=== PATIENT | female | born 1980 | race Caucasian/White ===

== ENCOUNTER 2020-03-13 20:09 | Inpatient (IN) | payer SELFPAY ==
[~2020-03-13] VITALS: Ht 165.1 cm; Wt 78.6 kg
[2020-03-13 19:45] VITALS: BP 124/79
[2020-03-13] MEDS ORDERED: EFFEXOR75 MG PO (20:17)
[2020-03-13] MEDS ORDERED: XANAX0.5 MG PO (20:18)
[2020-03-13 20:30] VITALS: BP 134/82
--- NOTE | 2020-03-13 20:34 | NUR ---
URINE SPEC TO LAB
[2020-03-13 21:30] VITALS: BP 106/84
--- NOTE | 2020-03-13 21:40 | NUR ---
PATIENT IN ER 5 WITH FLANK PAIN. SHE IS NOT SUICIDIAL AND HAS NOT BEEN IN MONTHS. SHE HAS A FRIEND WITH HER THAT IS REALLY ATTENTIVE. SHE REPORTS THAT SHE HAS BEEN TAKING HER MEDS PRESCRIBED AND ONLY WANTS HELP WITH HER FLANK PAIN. 1800 NUMBER GIVEN FOR FUTURE REFERENCE.
[2020-03-13 22:01] LABS: BILIRUBIN NEGATIVE (NEGATIVE); GLUCOSE NEGATIVE (NEGATIVE); KETONE NEGATIVE (NEGATIVE); NITRITE POSITIVE (NEGATIVE); UROBILINOGEN NORMAL (NORMAL)
[2020-03-13 22:07] LABS: BACTERIA MODERATE /hpf (NEGATIVE); EPITHELIAL CELLS 0-5 /hpf (0-5); RED CELLS - URINE 0-5 /hpf (0-5)
[2020-03-13 22:32] LABS: HCG URINE NEGATIVE (NEGATIVE)
[2020-03-13 22:36] LABS: BASOPHILS 0.2 % (0-2); CALCIUM 8.4 mg/dL (8.5-10.1); CARBON DIOXIDE 30.2 mmol/L (21.0-32.0); CREATININE - SERUM 0.9 mg/dL (0.6-1.3); EOSINOPHILS 1.2 % (0-7); HEMATOCRIT 40.2 % (36.0-48.0); HEMOGLOBIN 13.1 g/dL (12-16); IMMATURE GRANULOCYTES 0.3 % (0-5); LYMPHOCYTES 18.4 % (15-50); MCH 31.7 pg (26.0-34.0); MCHC 32.6 g/dL (31.0-37.0); MCV 97.3 fL (80.0-100.0); MEAN PLATELET VOLUME 10.8 fL (7.4-10.4); MONOCYTES 6.4 % (2-11); NEUTROPHILS 73.5 % (40-80); PLATELET COUNT 367 10x3/uL (130-400); POTASSIUM - SERUM 3.2 mmol/L (3.5-5.1); RBC 4.13 10x6/uL (4.00-5.40); RDW 12.9 % (11.5-14.5)
[2020-03-13 22:40] LABS: ALBUMIN 2.8 g/dL (3.4-5.0); BILIRUBIN - TOTAL 0.28 mg/dL (0.2-1.3); PROTEIN - SERUM 7.5 g/dL (6.4-8.2)
[2020-03-14 00:14] LABS: UDS - AMPHET POSITIVE QUAL (NEGATIVE); UDS - BARB NEGATIVE QUAL (NEGATIVE); UDS - BENZO NEGATIVE QUAL (NEGATIVE); UDS - COCAINE NEGATIVE QUAL (NEGATIVE); UDS - OPIATE NEGATIVE QUAL (NEGATIVE); UDS - PCP NEGATIVE QUAL (NEGATIVE); UDS - THC POSITIVE QUAL (NEGATIVE)
--- NOTE | 2020-03-14 02:35 | NUR ---
RECEIVED PT TO FLOOR FROM ER VIA WHEELCHAIR. PT AMBULATORY. RATES RIGHT FLANK PAIN 2/10. REVIEWED HOME MEDS AND HISTORY. PT DRINKS A SIX PACK OF COLA A DAY AND VERY LITTLE WATER. GAVE PT SANDWICH TRAY AND COLA. NO OTHER NEEDS. WILL REASSESS AND CONTINUE TO MONITOR.
[2020-03-14 04:49] VITALS: Ht 165.1 cm; Wt 78.6 kg
[2020-03-14 06:01] VITALS: BP 97/63
[2020-03-14 09:10] VITALS: BP 104/66
[2020-03-14 11:54] VITALS: BP 97/96
--- NOTE | 2020-03-14 12:19 | NUR ---
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 GIVEN PER EMAR. DENIES ANY OTHER NEEDS AT THIS TIME. WILL REASSES AND CONTINUE TO MONITOR.
[2020-03-14 16:22] VITALS: BP 102/68
[2020-03-14 20:00] VITALS: BP 108/65
[2020-03-15] VITALS: BP 93/56
--- NOTE | 2020-03-15 03:53 | NUR ---
REC'D IN BED EYES CLOSED RESP, DEEP AND EVEN.WILL CONTINUE TO MONITOR FOR ANY CHGES. AND FOLLOW CURRENT PLAN OF CARE.
[2020-03-15 04:00] VITALS: BP 86/48
[2020-03-15 08:00] VITALS: BP 106/67
--- NOTE | 2020-03-15 08:01 | NUR ---
PATIENT IN BED SLEEPING. EASY TO AROUSE. DENIES NEEDS. BED LOW POSITION, CALL LIGHT IN REACH. WILL CONTINUE TO MONITOR.
[2020-03-15 10:43] LABS: BASOPHILS 0.2 % (0-2); EOSINOPHILS 3.4 % (0-7); HEMATOCRIT 37.4 % (36.0-48.0); HEMOGLOBIN 11.8 g/dL (12-16); IMMATURE GRANULOCYTES 0.2 % (0-5); LYMPHOCYTES 21.2 % (15-50); MCH 30.6 pg (26.0-34.0); MCHC 31.6 g/dL (31.0-37.0); MCV 96.9 fL (80.0-100.0); MEAN PLATELET VOLUME 10.6 fL (7.4-10.4); MONOCYTES 8.8 % (2-11); NEUTROPHILS 66.2 % (40-80); PLATELET COUNT 336 10x3/uL (130-400); RBC 3.86 10x6/uL (4.00-5.40); RDW 12.6 % (11.5-14.5)
[2020-03-15 10:44] LABS: WBC 9.5 10x3/uL (4.8-10.8)
[2020-03-15 10:59] LABS: ALBUMIN 2.3 g/dL (3.4-5.0); ALKALINE PHOSPHATASE 77 U/L (30-120); BILIRUBIN - TOTAL 0.16 mg/dL (0.2-1.3); CALC OSMOLALITY 272 mosm/kg (275-300); CALCIUM 7.8 mg/dL (8.5-10.1); CARBON DIOXIDE 27.2 mmol/L (21.0-32.0); CHLORIDE - SERUM 105 mmol/L (98-107); CREATININE - SERUM 0.7 mg/dL (0.6-1.3); GLUCOSE 115 mg/dL (74-106); PROTEIN - SERUM 6.5 g/dL (6.4-8.2); SODIUM 137 mmol/L (136-145); UREA NITROGEN 8 mg/dL (7-18); eGFR NON AFRICAN AMERICAN > 90 mL/min (90-120)
[2020-03-15 11:02] LABS: ALT (SGPT) 122 U/L (10-68); POTASSIUM - SERUM 4.1 mmol/L (3.5-5.1)
[2020-03-15 13:31] VITALS: BP 94/60
[2020-03-15] MEDS ORDERED: CIPRO500 MG PO (13:36)
--- NOTE | 2020-03-15 15:20 | NUR ---
DISCHARGE PAPERS COMPLETE. NO FURTHER QUESTIONS. RIGHT HAND IV REMOVED. CATH TIP INTACT. PATIENT WAITING ON RIDE.
--- NOTE | 2020-03-15 15:37 | NUR ---
PATIENT LEFT UNIT VIA WHEELCHAIR TO HOME. ALL BELONGINGS TAKEN WITH PATIENT.
== END 2020-03-15 15:38 | disposition home or self-care (01) | DRG 690 ==
LOC: D.ER 20:09 → D.MS 03-14 01:35 → OBSVTIME 03-14 05:00 → D.MS 03-14 23:01
PROVIDERS: Family Medicine; ADMIT Family Medicine; ATTEND Family Medicine
DX: N10 Acute pyelonephritis (principal); F17.203 Nicotine dependence unspecified, with withdrawal; N39.0 Urinary tract infection, site not specified; F17.200 Nicotine dependence, unspecified, uncomplicated